=== PATIENT | female | born 1980 | race Caucasian/White ===

== ENCOUNTER → 2017-01-01 | Outpatient (CLI) | payer BC ==
--- NOTE | 2017-01-02 12:03 | MM ---
Reason for exam: screening (asymptomatic). Last mammogram was performed 3 years and 4 months ago. History: Reductions of both breasts, 2006. Taking hormonal contraceptives for 11 years beginning at age 20. Physical Findings: A clinical breast exam by your physician is recommended on an annual basis and results should be correlated with mammographic findings. MG 3D Screening Mammo W/Cad Bilateral CC and MLO view(s) were taken. Prior study comparison: August 28, 2013, bilateral MG diagnostic mammo w CAD TROY. January 11, 2012, CAD bilateral diagnostic mammogram. The breast tissue is heterogeneously dense. This may lower the sensitivity of mammography. Focal asymmetry upper outer right brast 8.2cm from nipple. This finding is changed when compared with previous exams. ASSESSMENT: Incomplete: need additional imaging evaluation, BI-RAD 0 RECOMMENDATION: Special view mammogram of the right breast. If lesion persists on supplemental views, image directed ultrasound is recommended. [facility] will attempt to contact patient to return for supplemental views and ultrasound if indicated.
== END | disposition home or self-care (01) ==
LOC: RADMAMWWP 15:04
PROVIDERS: ATTEND Obstetrics & Gynecology Obstetrics
DX: Z12.31 Encounter for screening mammogram for malignant neoplasm of breast (principal)
CPT/HCPCS: 77063; G0202

== ENCOUNTER → 2017-01-09 | Outpatient (CLI) | payer BC ==
--- NOTE | 2017-01-10 07:42 | MM ---
Reason for exam: additional evaluation requested from abnormal screening. Last mammogram was performed less than 1 month ago. History: Reductions of both breasts, 2006. Taking hormonal contraceptives for 11 years beginning at age 20. Physical Findings: Nurse did not find any significant physical abnormalities on exam. MG 3D Work Up W/Cad RT Spot compression CC, spot compression MLO, and ML view(s) were taken of the right breast. Prior study comparison: January 01, 2017, bilateral MG 3d screening mammo w/cad. August 28, 2013, bilateral MG diagnostic mammo w CAD TROY. The breast tissue is heterogeneously dense. This may lower the sensitivity of mammography. There is no discrete abnormality on compression. These results were verbally communicated with the patient and result sheet given to the patient on 01/09/17. ASSESSMENT: Benign, BI-RAD 2 RECOMMENDATION: Return to routine screening mammogram schedule for both breasts.
== END | disposition home or self-care (01) ==
LOC: RADMAMWWP 14:46
PROVIDERS: ATTEND Obstetrics & Gynecology Obstetrics
DX: R92.8 Other abnormal and inconclusive findings on diagnostic imaging of breast (principal)
CPT/HCPCS: G0206; G0279

== ENCOUNTER 2017-05-17 01:01 | Emergency (ER) | payer BC ==
[2017-05-17] MEDS ORDERED: SODIUM CHLORIDE 0.9% 1,000 ML IV STA (01:19)
[2017-05-17] MEDS ORDERED: HYDROmorphone 0.5 MG/0.5 ML SYRINGE IVP STA (01:19)
[2017-05-17] MEDS ORDERED: ONDANSETRON 4 MG/2 ML VIAL IVP STA (01:19)
--- NOTE | 2017-05-17 01:24 | ED ---
Abdominal Pain HPI - General Chief Complaint: Abdominal Pain Stated Complaint: abdominal pain Time Seen by Provider: 05/17/17 01:13 Source: patient, family Mode of arrival: ambulatory Limitations: no limitations - History of Present Illness Initial Comments: 36-year-old female patient presented to the emergency department today for evaluation of the mid-epigastric abdominal pain. Patient states that symptoms started midafternoon on Sunday. She states that the pain is waxing and waning. She states it occasionally radiates into her back. States it worsens after eating meals. She states that the pain is like a squeezing cramping pain. She states when the pain is at its worse she does become nauseated. She denies any radiation of the pain into her shoulders. She denies any vomiting, constipation, or diarrhea with this. She denies any fevers or chills with this. She states that she does have a history of Crohn's disease and has had a bowel resection in the past. States she has had 2 hernia repairs as well. Patient denies any recent rash, shortness breath, chest pain, sweats, abdominal pain, numbness, tingling, dizziness, weakness, hematuria, dysuria, urinary urgency, urinary frequency, headache, visual changes, or any other complaints. - Related Data Home Medications Medication Instructions Recorded Confirmed ALPRAZolam [Xanax] 0.25 mg PO BID PRN 05/26/14 05/17/17 Fluticasone Propionate [Flonase] 2 spray EA NOSTRIL DAILY 05/26/14 05/17/17 Loratadine [Claritin] 10 mg PO DAILY 05/26/14 05/17/17 inFLIXimab [Remicade] 0 mg IVPB 05/17/17 Previous Rx's Medication Instructions Recorded traMADol HCl [Ultram] 100 mg PO Q6HR PRN #60 tab 05/28/14 Promethazine [Phenergan] 25 mg PO Q6HR PRN #12 tablet 05/30/14 Allergies Allergy/AdvReac Type Severity Reaction Status Date / Time hydrocodone bitartrate Allergy itching of Verified 05/17/17 01:07 [From Vicodin] throat metronidazole [From Flagyl] Allergy Rash/Hives Verified 05/17/17 01:08 prochlorperazine maleate Allergy Anaphylaxis Verified 02/01/18 01:07 [From Compazine] Sulfa (Sulfonamide Allergy Itching Verified 05/17/17 01:07 Antibiotics) throat Tetracyclines Allergy itching of Verified 05/17/17 01:07 throat aspirin AdvReac due to Verified 05/17/17 01:07 nasal polyps NSAIDS (Non-Steroidal AdvReac due to Verified 05/17/17 01:07 Anti-Inflamma nasal polyps Review of Systems ROS Statement: Those systems with pertinent positive or pertinent negative responses have been documented in the HPI. ROS Other: All systems not noted in ROS Statement are negative. Past Medical History Additional Past Medical History / Comment(s): chronz dx. History of Any Multi-Drug Resistant Organisms: None Reported Past Surgical History: Adenoidectomy, Hernia Repair, Tonsillectomy Additional Past Surgical History / Comment(s): nose surgery, wisdom teeth (all four), breast reduction, D&C, Umbilical hernia, sinus surgery (2012), bowel resection (september 2013), Nose fx surgery ( 05-28-14) Past Psychological History: Anxiety Smoking Status: Never smoker Past Alcohol Use History: Occasional Past Drug Use History: None Reported General Exam Limitations: no limitations General appearance: alert, in no apparent distress, other (Physical well- developed, well-nourished adult female patient in no acute distress. Vital signs upon presentation were temperature 97.7F, pulse 72, respirations 20, blood pressure 173/90, pulse ox 100% on room air.) Eye exam: Present: normal appearance, PERRL, EOMI. Absent: scleral icterus, conjunctival injection, periorbital swelling ENT exam: Present: normal exam, normal oropharynx, mucous membranes moist Respiratory exam: Present: normal lung sounds bilaterally. Absent: respiratory distress, wheezes, rales, rhonchi, stridor Cardiovascular Exam: Present: regular rate, normal rhythm, normal heart sounds. Absent: systolic murmur, diastolic murmur, rubs, gallop, clicks GI/Abdominal exam: Present: soft, tenderness (Mid epigastric tenderness), normal bowel sounds. Absent: distended, guarding, rebound, rigid Back exam: Present: normal inspection. Absent: CVA tenderness (R), CVA tenderness (L) Neurological exam: Present: alert, oriented X3, CN II-XII intact Psychiatric exam: Present: normal affect, normal mood Skin exam: Present: warm, dry, intact, normal color. Absent: rash Course Vital Signs 05/17/17 05/17/17 01:04 02:50 Temperature 97.7 F 97.8 F Pulse Rate 72 70 Respiratory 20 17 Rate Blood Pressure 173/90 126/68 O2 Sat by Pulse 100 100 Oximetry Medical Decision Making - Medical Decision Making 36-year-old male patient presented to the emergency department today for complaints of midepigastric abdominal pain. Physical examination did reveal mid epigastric tenderness. Labs reviewed and were unremarkable. Urinalysis was negative. KUB x-ray of the abdomen showed overall nonobstructive bowel gas pattern. CT the abdomen and pelvis was obtained per patient's request and showed colonic stool burden. I did discuss results with the patient. She did continue to have abdominal pain however our options for pain medication were limited by her ALLERGIES. I did discuss that her pain could be related to constipation and we did give her some magnesium citrate to try at home. She is educated regarding a fibrous diet and increasing her fluid intake. She will be given a prescription for an ultrasound to be obtained outpatient with results going to her primary care physician. I did discuss return parameters with her. She is instructed to follow-up with her primary care physician as well as her GI specialist as soon as possible. She is instructed to return here immediately for any new, worsening, or concerning symptoms. She verbalizes understanding and agrees with this plan. - Lab Data Result diagrams: 05/17/17 02:17 05/17/17 02:17 Lab Results 05/17/17 05/17/17 05/17/17 Range/Units 01:25 01:25 02:17 WBC (3.8-10.6) k/uL RBC (3.80-5.40) m/uL Hgb (11.4-16.0) gm/dL Hct (34.0-46.0) % MCV (80.0-100.0) fL MCH (25.0-35.0) pg MCHC (31.0-37.0) g/dL RDW (11.5-15.5) % Plt Count (150-450) k/uL Neutrophils % (Manual) % Lymphocytes % (Manual) % Monocytes % (Manual) % Eosinophils % (Manual) % Neutrophils # (Manual) (1.3-7.7) k/uL Lymphocytes # (Manual) (1.0-4.8) k/uL Monocytes # (Manual) (0-1.0) k/uL Eosinophils # (Manual) (0-0.7) k/uL Nucleated RBCs (0-0) /100 WBC Manual Slide Review Large Platelets Sodium 141 (137-145) mmol/L Potassium 4.0 (3.5-5.1) mmol/L Chloride 104 (98-107) mmol/L Carbon Dioxide 25 (22-30) mmol/L Anion Gap 12 mmol/L BUN 9 (7-17) mg/dL Creatinine 0.70 (0.52-1.04) mg/dL Est GFR (MDRD) Af Amer >60 (>60 ml/min/1.73 sqM) Est GFR (MDRD) Non-Af >60 (>60 ml/min/1.73 sqM) Glucose 95 (74-99) mg/dL Calcium 9.6 (8.4-10.2) mg/dL Total Bilirubin 0.5 (0.2-1.3) mg/dL AST 19 (14-36) U/L ALT 22 (9-52) U/L Alkaline Phosphatase 57 (38-126) U/L Total Protein 7.9 (6.3-8.2) g/dL Albumin 4.6 (3.5-5.0) g/dL Amylase 176 H (30-110) U/L Lipase 72 (23-300) U/L Urine Color Colorless Urine Appearance Turbid H (Clear) Urine pH 6.0 (5.0-8.0) Ur Specific [place] 1.002 (1.001-1.035) Urine Protein Negative (Negative) Urine Glucose (UA) Negative (Negative) Urine Ketones Negative (Negative) Urine Blood Negative (Negative) Urine Nitrite Negative (Negative) Urine Bilirubin Negative (Negative) Urine Urobilinogen <2.0 (<2.0) mg/dL Ur Leukocyte Esterase Negative (Negative) Urine WBC 1 (0-5) /hpf Urine HCG, Qual Not Detected (Not Detectd) 05/17/17 Range/Units 02:17 WBC 8.1 (3.8-10.6) k/uL RBC 4.21 (3.80-5.40) m/uL Hgb 13.1 (11.4-16.0) gm/dL Hct 38.0 (34.0-46.0) % MCV 90.2 (80.0-100.0) fL MCH 31.1 (25.0-35.0) pg MCHC 34.4 (31.0-37.0) g/dL RDW 12.3 (11.5-15.5) % Plt Count 196 (150-450) k/uL Neutrophils % (Manual) 53 % Lymphocytes % (Manual) 35 % Monocytes % (Manual) 11 % Eosinophils % (Manual) 1 % Neutrophils # (Manual) 4.29 (1.3-7.7) k/uL Lymphocytes # (Manual) 2.84 (1.0-4.8) k/uL Monocytes # (Manual) 0.89 (0-1.0) k/uL Eosinophils # (Manual) 0.08 (0-0.7) k/uL Nucleated RBCs 0 (0-0) /100 WBC Manual Slide Review Performed Large Platelets Present Sodium (137-145) mmol/L Potassium (3.5-5.1) mmol/L Chloride (98-107) mmol/L Carbon Dioxide (22-30) mmol/L Anion Gap mmol/L BUN (7-17) mg/dL Creatinine (0.52-1.04) mg/dL Est GFR (MDRD) Af Amer (>60 ml/min/1.73 sqM) Est GFR (MDRD) Non-Af (>60 ml/min/1.73 sqM) Glucose (74-99) mg/dL Calcium (8.4-10.2) mg/dL Total Bilirubin (0.2-1.3) mg/dL AST (14-36) U/L ALT (9-52) U/L Alkaline Phosphatase (38-126) U/L Total Protein (6.3-8.2) g/dL Albumin (3.5-5.0) g/dL Amylase (30-110) U/L Lipase (23-300) U/L Urine Color Urine Appearance (Clear) Urine pH (5.0-8.0) Ur Specific [place] (1.001-1.035) Urine Protein (Negative) Urine Glucose (UA) (Negative) Urine Ketones (Negative) Urine Blood (Negative) Urine Nitrite (Negative) Urine Bilirubin (Negative) Urine Urobilinogen (<2.0) mg/dL Ur Leukocyte Esterase (Negative) Urine WBC (0-5) /hpf Urine HCG, Qual (Not Detectd) - EKG Data -: EKG Interpreted by Me EKG Comments: EKG obtained at 0408 shows normal sinus rhythm with a ventricular rate of 63, MD interval 186, QRS duration 80, QT 394, QTC 403. No evidence of ST elevation or depression. - Radiology Data Radiology results: report reviewed, image reviewed Two-view x-ray of the abdomen shows no sign of intestinal obstruction or pneumoperitoneum. Fecal pattern is normal. Lung bases are clear. There are no pathologic calcifications over the kidneys. There is mild lumbar levoscoliosis. Impression by Dr. Stone shows nonacute abdomen. No change. CT of the abdomen and pelvis was obtained, report was reviewed in its entirety. Impression by Dr. Gross shows postoperative changes involving the ascending colon. Large amount of retained stool throughout the colon. Consider constipation. IUD within the endometrial canal. Disposition Clinical Impression: Abdominal pain Disposition: HOME SELF-CARE Condition: Good Instructions: Constipation (ED), High Fiber Diet (ED), Abdominal Pain (ED) Additional Instructions: Increase fluids, especially water. Use Magnesium Citrate as directed. Have ultrasound performed outpatient, results will be sent to your primary care doctor. Return here immediately for any new, worsening, or concerning symptoms. Referrals: Gabo Joe DO [Primary Care Provider] - 1-2 days Time of Disposition: 04:30
[2017-05-17 01:57] LABS: Appearance,Urine Turbid (Clear); Bilirubin,Urine Negative (Negative); Blood,Urine Negative (Negative); Color,Urine Colorless; Glucose,Urine (UA) Negative (Negative); Ketones,Urine Negative (Negative); Leukocyte Esterase,Urine Negative (Negative); Nitrite,Urine Negative (Negative); Protein,Urine Negative (Negative); Specific Gravity,Urine 1.002 (1.001-1.035); Urobilinogen,Urine <2.0 mg/dL (<2.0); WBC,Urine 1 /hpf (0-5)
[2017-05-17] MEDS ORDERED: HYDROmorphone 2 MG/ML 1 ML SYRINGE IVP STA (02:07)
[2017-05-17 02:27] LABS: HGB 13.1 gm/dL (11.4-16.0); MCH 31.1 pg (25.0-35.0); MCHC 34.4 g/dL (31.0-37.0); MCV 90.2 fL (80.0-100.0); Mean Platelet Volume 7.7; Platelet Count 196 k/uL (150-450); RBC 4.21 m/uL (3.80-5.40); RDW 12.3 % (11.5-15.5); WBC 8.1 k/uL (3.8-10.6)
[2017-05-17 02:35] LABS: ALT 22 U/L (9-52); AST 19 U/L (14-36); Albumin 4.6 g/dL (3.5-5.0); Alkaline Phosphatase 57 U/L (38-126); Amylase 176 U/L (30-110); Anion Gap 12 mmol/L; Blood Urea Nitrogen 9 mg/dL (7-17); Calcium 9.6 mg/dL (8.4-10.2); Carbon Dioxide 25 mmol/L (22-30); Chloride 104 mmol/L (98-107); Glucose 95 mg/dL (74-99); Lipase 72 U/L (23-300); Sodium 141 mmol/L (137-145); Total Bilirubin 0.5 mg/dL (0.2-1.3); Total Protein 7.9 g/dL (6.3-8.2)
--- NOTE | 2017-05-17 02:42 | XR ---
EXAMINATION TYPE: XR KUB DATE OF EXAM: 05/17/2017 COMPARISON: 04/26/2013 HISTORY: Abdominal pain TECHNIQUE: 2 views FINDINGS: There is no sign of intestinal obstruction or pneumoperitoneum. Fecal pattern is normal. Denae ng bases are clear. There are no pathologic calcifications over the kidneys. There is lumbar mild lev oscoliosis. IMPRESSION: Nonacute abdomen. No change.
[2017-05-17 02:51] VITALS: RESP 17
[2017-05-17] MEDS ORDERED: RX INFO: IV CONTRAST WAS GIVEN 1 EACH MISC MISCELLANE PRN (03:09)
[2017-05-17 03:36] LABS: Eosinophils # (M) 0.08 k/uL (0-0.7); Large Platelets Present; Lymphocytes # (M) 2.84 k/uL (1.0-4.8); Monocytes # (M) 0.89 k/uL (0-1.0); Neutrophils # (M) 4.29 k/uL (1.3-7.7); Neutrophils % (M) 53 %; Nucleated Red Blood Cells 0 /100 WBC (0-0); Total Cells Counted 100
--- NOTE | 2017-05-17 03:53 | CT ---
EXAM: CT Abdomen and Pelvis With Intravenous Contrast CLINICAL HISTORY: Reason: Pain TECHNIQUE: Axial computed tomography images of the abdomen and pelvis with intravenous contrast. CTDI is 14 mGy and DLP is 43.2 mGy-cm. This CT exam was performed using one or more of the following dose reduction techniques: automated exposure control, adjustment of the mA and/or kV according to patient size, and/or use of iterative reconstruction technique. COMPARISON: 07/01/13. FINDINGS: Lower thorax: No acute findings. ABDOMEN: Liver: Unremarkable. No mass. Gallbladder and bile ducts: Unremarkable. No calcified stones. No ductal dilation. Pancreas: Unremarkable. No mass. No ductal dilation. Spleen: Unremarkable. No splenomegaly. Adrenals: Unremarkable. No mass. Kidneys and ureters: Unremarkable. No solid mass. No hydronephrosis. Stomach and bowel: There are postoperative changes in the region of the ascending colon. Large amount of retained stool throughout the colon. No mucosal thickening. Appendix: No findings to suggest acute appendicitis. PELVIS: Bladder: The urinary bladder is distended. Reproductive: The IUD is within the endometrial canal. ABDOMEN and PELVIS: Intraperitoneal space: Small amount free fluid in the pelvic cul-de- sac is likely physiologic. No free air. Bones/joints: No acute fracture. No dislocation. Soft tissues: Unremarkable. Vasculature: Unremarkable. No abdominal aortic aneurysm. Lymph nodes: Unremarkable. No enlarged lymph nodes. IMPRESSION: Postoperative changes involving the ascending colon. Large amount of retained stool throughout the colon. Consider constipation. IUD within the endometrial canal.
[2017-05-17] MEDS ORDERED: MAGNESIUM CITRATE 296 ML BOTTLE PO ONE (04:30)
[2017-05-17 04:32] VITALS: BP 146/86; PULSE 65; TEMP 96.7
== END 2017-05-17 04:35 | disposition home or self-care (01) ==
LOC: EC 01:01
DX: R10.13 Epigastric pain (principal); R19.5 Other fecal abnormalities; M41.86 Other forms of scoliosis, lumbar region; M54.9 Dorsalgia, unspecified; R11.0 Nausea; K50.90 Crohn's disease, unspecified, without complications; Z79.51 Long term (current) use of inhaled steroids; Z79.899 Other long term (current) drug therapy; Z88.1 Allergy status to other antibiotic agents; Z88.2 Allergy status to sulfonamides; Z88.5 Allergy status to narcotic agent; Z88.6 Allergy status to analgesic agent; Z88.8 Allergy status to other drugs, medicaments and biological substances; Z97.5 Presence of (intrauterine) contraceptive device; Z90.49 Acquired absence of other specified parts of digestive tract; Z53.8 Procedure and treatment not carried out for other reasons
CPT/HCPCS: 36415; 93005; 80053; 82150; 83690; 85025; 81001; 81025; 74018; 74177; 99284; 96374; 96375; 96361; J1170; J2405; Q9967

== ENCOUNTER → 2018-01-04 | Outpatient (CLI) | payer OTHER ==
--- NOTE | 2018-01-04 15:02 | XR ---
EXAMINATION TYPE: XR wrist complete RT DATE OF EXAM: 01/04/2018 CLINICAL HISTORY: pain TECHNIQUE: Frontal, lateral and oblique images of the right wrist are obtained. COMPARISON: None. FINDINGS: There is no acute fracture/dislocation evident. The joint spaces appear within normal limits. The o verlying soft tissue appears unremarkable. IMPRESSION: There is no acute fracture or dislocation seen. ICD 10 NO FRACTURE, INITIAL EVALUATION
== END | disposition home or self-care (01) ==
LOC: RADXRMAIN 14:49
PROVIDERS: ATTEND Emergency Medicine
DX: S63.501A Unspecified sprain of right wrist, initial encounter (principal)

== ENCOUNTER 2019-09-21 13:44 | Emergency (ER) | payer BC, OTHER ==
[2019-09-21 13:51] VITALS: RESP 18
--- NOTE | 2019-09-21 14:33 | ED ---
General Adult HPI - General Chief complaint: Extremity Injury, Lower Stated complaint: Poss blood clot Time Seen by Provider: 09/21/19 13:52 Source: patient, RN notes reviewed Mode of arrival: ambulatory Limitations: no limitations - History of Present Illness Initial comments: 38-year-old female with a past medical history of Crohn's disease presents to the emergency department for a chief complaint of right calf burning. Patient states she has had a burning sensation in her right calf for the past few weeks. Patient states it hurts to walk on. She has no difficulty moving her foot. Patient states she was riding her [place] today and the pain worsened and she called her nursing friend who told her she could've a blood clot. Therefore patient came to the emergency department for evaluation. Patient denies chest pain or shortness of breath. Patient does not have a history of blood clots. Is not on blood thinners.Patient has no other complaints at this time including shortness of breath, chest pain, abdominal pain, nausea or vomiting, headache, or visual changes. - Related Data Home Medications Medication Instructions Recorded Confirmed ALPRAZolam [Xanax] 0.25 mg PO BID PRN 05/26/14 05/17/17 Fluticasone Propionate [Flonase] 2 spray EA NOSTRIL DAILY 05/26/14 05/17/17 Loratadine [Claritin] 10 mg PO DAILY 05/26/14 05/17/17 inFLIXimab [Remicade] 0 mg IVPB 05/17/17 Previous Rx's Medication Instructions Recorded traMADol HCl [Ultram] 100 mg PO Q6HR PRN #60 tab 05/28/14 Promethazine [Phenergan] 25 mg PO Q6HR PRN #12 tablet 05/30/14 Allergies Allergy/AdvReac Type Severity Reaction Status Date / Time hydrocodone bitartrate Allergy itching of Verified 09/21/19 13:50 [From Vicodin] throat metronidazole [From Flagyl] Allergy Rash/Hives Verified 09/21/19 13:50 prochlorperazine maleate Allergy Anaphylaxis Verified 09/21/19 13:50 [From Compazine] Sulfa (Sulfonamide Allergy Itching Verified 09/21/19 13:50 Antibiotics) throat Tetracyclines Allergy itching of Verified 09/21/19 13:50 throat aspirin AdvReac due to Verified 09/21/19 13:50 nasal polyps NSAIDS (Non-Steroidal AdvReac due to Verified 09/21/19 13:50 Anti-Inflamma nasal polyps Review of Systems ROS Statement: Those systems with pertinent positive or pertinent negative responses have been documented in the HPI. ROS Other: All systems not noted in ROS Statement are negative. Past Medical History Additional Past Medical History / Comment(s): chrons dx. History of Any Multi-Drug Resistant Organisms: None Reported Past Surgical History: Adenoidectomy, Hernia Repair, Tonsillectomy Additional Past Surgical History / Comment(s): nose surgery, wisdom teeth (all four), breast reduction, D&C, Umbilical hernia, sinus surgery (2012), bowel resection (september 2013), Nose fx surgery ( 05-28-14), Past Psychological History: Anxiety Smoking Status: Never smoker Past Alcohol Use History: Occasional Past Drug Use History: None Reported General Exam Limitations: no limitations General appearance: alert, in no apparent distress Head exam: Present: atraumatic, normocephalic, normal inspection Eye exam: Present: normal appearance, PERRL, EOMI. Absent: scleral icterus, conjunctival injection, periorbital swelling ENT exam: Present: normal exam, mucous membranes moist Neck exam: Present: normal inspection, full ROM. Absent: tenderness, meningism us, lymphadenopathy Respiratory exam: Present: normal lung sounds bilaterally. Absent: respiratory distress, wheezes, rales, rhonchi, stridor Cardiovascular Exam: Present: regular rate, normal rhythm, normal heart sounds. Absent: systolic murmur, diastolic murmur, rubs, gallop, clicks Extremities exam: Present: full ROM (Full range of motion of the right knee as well as right ankle.), normal capillary refill (Capillary refill less than 2 seconds, pedal pulse 2+ in the right lower extremity.), calf tenderness (Minimal tenderness of the right calf). Absent: tenderness, pedal edema, joint swelling, other (There is no erythema edema or increased warmth of the right calf.) Course Vital Signs 09/21/19 13:48 Temperature 97.9 F Pulse Rate 74 Respiratory 18 Rate Blood Pressure 176/92 O2 Sat by Pulse 100 Oximetry Medical Decision Making - Medical Decision Making HPI physical exam as documented. No edema erythema or increased circumference of the right calf. Negative Homans sign. Neurovascular status intact right lower extremity. Right lower extremity ultrasound is negative for DVT. Patient may have muscle strain or other causes of calf pain. However I do not see an emergent cause of pain. She will follow up with her primary care provider. She'll return for any other worsening symptoms. Disposition Clinical Impression: Right calf pain Disposition: HOME SELF-CARE Condition: Good Instructions (If sedation given, give patient instructions): Leg Pain (ED) Additional Instructions: Please follow up with primary care in 1-2 days. Please return here to the emergency room for any worsening symptoms. Is patient prescribed a controlled substance at d/c from ED?: No Referrals: Gabo Joe DO [Primary Care Provider] - 1-2 days Time of Disposition: 15:12
--- NOTE | 2019-09-21 15:01 | US ---
EXAMINATION TYPE: US venous doppler duplex LE RT DATE OF EXAM: 09/21/2019 2:53 PM COMPARISON: NONE CLINICAL HISTORY: r/o blood clot. Right calf pain SIDE PERFORMED: Right TECHNIQUE: The lower extremity deep venous system is examined utilizing real time linear array sonog broderick with graded compression, doppler sonography and color-flow sonography. VESSELS IMAGED: External Iliac Vein (EIV) Common Femoral Vein Deep Femoral Vein Greater Saphenous Vein * Femoral Vein Popliteal Vein Small Saphenous Vein * Proximal Calf Veins (* superficial vessels) Compression not done at EIV, GSV, CFV, and prox fem vein due to patient too ticklish. Right Leg: Visualized portions appear negative for DVT IMPRESSION: 1. Right lower extremity ultrasound negative for deep venous thrombosis.
[2019-09-21 15:26] VITALS: BP 138/78; PULSE 78; TEMP 98
== END 2019-09-21 15:25 | disposition home or self-care (01) ==
LOC: EC 13:44
DX: M79.661 Pain in right lower leg (principal); Z88.5 Allergy status to narcotic agent; Z88.1 Allergy status to other antibiotic agents; Z88.2 Allergy status to sulfonamides; Z88.6 Allergy status to analgesic agent; Z88.8 Allergy status to other drugs, medicaments and biological substances
CPT/HCPCS: 99283

== ENCOUNTER → 2020-02-02 | Outpatient (CLI) | payer BC ==
--- NOTE | 2020-02-03 13:38 | MM ---
Reason for exam: screening (asymptomatic). Last mammogram was performed 3 years and 1 month ago. History: Reductions of both breasts, 2006. Took hormonal contraceptives for 11 years beginning at age 20. Physical Findings: A clinical breast exam by your physician is recommended on an annual basis and results should be correlated with mammographic findings. MG 3D Screening Mammo W/Cad Bilateral CC and MLO view(s) were taken. XCCL view(s) were taken of the left breast. Prior study comparison: January 09, 2017, right breast MG 3d work up w/cad RT. January 01, 2017, bilateral MG 3d screening mammo w/cad. The breast tissue is heterogeneously dense. This may lower the sensitivity of mammography. There are benign appearing round, grouped calcifications in the left breast. Asymmetric breast tissue left axilla, stable. There is no discrete abnormality. ASSESSMENT: Benign, BI-RAD 2 RECOMMENDATION: Routine screening mammogram of both breasts in 1 year.
== END | disposition home or self-care (01) ==
LOC: RADMAMWWP 10:32
PROVIDERS: ATTEND Obstetrics & Gynecology Obstetrics
DX: Z12.31 Encounter for screening mammogram for malignant neoplasm of breast (principal)
CPT/HCPCS: 77063; 77067

== ENCOUNTER 2020-06-10 15:36 | Emergency (ER) | payer BC ==
[2020-06-10 15:45] VITALS: TEMP 98.5
[2020-06-10] MEDS ORDERED: SODIUM CHLORIDE 0.9% 1,000 ML IV ONE (15:49)
[2020-06-10] MEDS ORDERED: FAMOTIDINE 20 MG/2 ML VIAL IV STA (15:49)
[2020-06-10] MEDS ORDERED: methylPREDNISolone SOD SUCCI 125 MG/2 ML VIAL IV STA (15:49)
[2020-06-10] MEDS ORDERED: diphenhydrAMINE 50 MG/ML 1 ML VIAL IVP STA (15:49)
--- NOTE | 2020-06-10 16:56 | ED ---
Allergic Reaction HPI - General Chief complaint: Allergic Reaction Stated complaint: Allergic Reaction Time Seen by Provider: 06/10/20 15:40 Source: patient Mode of arrival: EMS Limitations: no limitations - History of Present Illness Initial Comments: Patient is a 39-year-old female with past medical history of colitis who presents to the emergency room with reported ALLERGIC reaction. She was at [facility] receiving her second Moderna vaccine when she had ALLERGIC reaction. Reports that she broke out in hives and had shortness of breath. They did administer an EpiPen and the patient self-administered 25 mg of Benadryl. EMS was called. When EMS arrived to the scene they did not appreciate any hives. Patient was not in any respiratory distress. Vital signs were normal. No hypotension, nausea or vomiting. Has multiple drug ALLERGIES. Denies ever having covid symptoms or diagnosed covid infection. Denies any chest pain. No abdominal pain or cramping. No concern for . Refused IV start by EMS. No other alleviating, precipitating or modifying factors - Related Data Home Medications Medication Instructions Recorded Confirmed ALPRAZolam [Xanax] 0.25 mg PO BID PRN 05/26/14 05/17/17 Fluticasone Propionate [Flonase] 2 spray EA NOSTRIL DAILY 05/26/14 05/17/17 Loratadine [Claritin] 10 mg PO DAILY 05/26/14 05/17/17 inFLIXimab [Remicade] 0 mg IVPB 05/17/17 Previous Rx's Medication Instructions Recorded traMADol HCl [Ultram] 100 mg PO Q6HR PRN #60 tab 05/28/14 Promethazine [Phenergan] 25 mg PO Q6HR PRN #12 tablet 05/30/14 EPINEPHrine (Auto Inject) [Epipen] 0.3 mg IM ONCE PRN #2 pen 06/10/20 Famotidine [Pepcid] 20 mg PO BID #10 tablet 06/10/20 methylPREDNISolone [Medrol Dose 4 mg PO DIRECTED #1 pack 06/10/20 Pack] Allergies Allergy/AdvReac Type Severity Reaction Status Date / Time hydrocodone bitartrate Allergy itching of Verified 06/15/20 00:49 [From Vicodin] throat metronidazole [From Flagyl] Allergy Rash/Hives Verified 06/15/20 00:49 prochlorperazine maleate Allergy Anaphylaxis Verified 06/15/20 00:49 [From Compazine] Sulfa (Sulfonamide Allergy Itching Verified 06/15/20 00:49 Antibiotics) throat Tetracyclines Allergy itching of Verified 06/15/20 00:49 throat aspirin AdvReac due to Verified 06/15/20 00:49 nasal polyps NSAIDS (Non-Steroidal AdvReac due to Verified 06/15/20 00:49 Anti-Inflamma nasal polyps Review of Systems ROS Statement: Those systems with pertinent positive or pertinent negative responses have been documented in the HPI. ROS Other: All systems not noted in ROS Statement are negative. Past Medical History Additional Past Medical History / Comment(s): chrons dx. History of Any Multi-Drug Resistant Organisms: None Reported Past Surgical History: Adenoidectomy, Hernia Repair, Tonsillectomy Additional Past Surgical History / Comment(s): nose surgery, wisdom teeth (all four), breast reduction, D&C, Umbilical hernia, sinus surgery (2012), bowel resection (september 2013), Nose fx surgery ( 05-28-14), Past Psychological History: Anxiety Smoking Status: Never smoker Past Alcohol Use History: Occasional Past Drug Use History: None Reported General Exam Limitations: no limitations General appearance: alert, anxious Head exam: Present: atraumatic, normocephalic, normal inspection Eye exam: Present: normal appearance, PERRL, EOMI. Absent: scleral icterus, conjunctival injection, periorbital swelling ENT exam: Present: normal exam, mucous membranes moist, other (No oral swelling. No tongue swelling. Floor of mouth is soft. No stridor or drooling. ) Neck exam: Present: normal inspection. Absent: tenderness, meningismus, lymphadenopathy Respiratory exam: Present: normal lung sounds bilaterally. Absent: respiratory distress, wheezes, rales, rhonchi, stridor Cardiovascular Exam: Present: regular rate, normal rhythm, normal heart sounds. Absent: systolic murmur, diastolic murmur, rubs, gallop, clicks GI/Abdominal exam: Present: soft, normal bowel sounds. Absent: distended, tenderness, guarding, rebound, rigid Extremities exam: Present: normal inspection, full ROM, normal capillary refill. Absent: tenderness, pedal edema, joint swelling, calf tenderness Back exam: Present: normal inspection Neurological exam: Present: alert, oriented X3, CN II-XII intact Psychiatric exam: Present: normal affect, normal mood Skin exam: Present: warm, dry, intact, normal color. Absent: rash Course Vital Signs 06/10/20 06/10/20 06/10/20 15:39 16:44 17:03 Temperature 98.5 F Pulse Rate 94 88 Respiratory 20 18 Rate Blood Pressure 158/109 158/102 O2 Sat by Pulse 100 100 100 Oximetry Medical Decision Making - Medical Decision Making Upon arrival patient was placed into room 2. Prompt reevaluation is performed. Patient does not have any signs of hives. No drooling, stridor or wheezing. Vital signs within normal limits. IV is established. Patient was given 25 mg of Benadryl IV, 20 mg of Pepcid and 125 mg of Solu-Medrol. Patient is observed in the emergency department for an hour and a half. She has no return of her shortness of breath or hives. Patient was placed on a Medrol Dosepak, Pepcid and [place] for the next 5 days. Patient is also given a prescription for an EpiPen. Follow up with her primary care doctor in 2-4 days. Return to the emergency room for any new or worsening symptoms. Patient was discharged home in stable condition Disposition Clinical Impression: Allergic reaction Disposition: HOME SELF-CARE Condition: Stable Instructions (If sedation given, give patient instructions): General Allergic Reaction (ED) Additional Instructions: Start taking your prescription medications tomorrow. Use the Epipen as needed for allergic reactions. Follow up with your PCP in 2-4 days. Return to the ED for any new or worsening symptoms. Prescriptions: EPINEPHrine (Auto Inject) [Epipen] 0.3 mg IM ONCE PRN #2 pen PRN Reason: Anaphylaxis methylPREDNISolone [Medrol Dose Pack] 4 mg PO DIRECTED #1 pack Famotidine [Pepcid] 20 mg PO BID #10 tablet Is patient prescribed a controlled substance at d/c from ED?: No Referrals: Gabo Joe DO [Primary Care Provider] - 1-2 days Time of Disposition: 16:56
[2020-06-10 17:06] VITALS: BP 158/102; PULSE 88; RESP 18
== END 2020-06-10 17:06 | disposition home or self-care (01) ==
LOC: EC 15:36
DX: T78.40XA Allergy, unspecified, initial encounter (principal); F41.9 Anxiety disorder, unspecified; Z79.899 Other long term (current) drug therapy; Z79.51 Long term (current) use of inhaled steroids; Z88.5 Allergy status to narcotic agent; Z88.2 Allergy status to sulfonamides; Z88.6 Allergy status to analgesic agent; Z88.8 Allergy status to other drugs, medicaments and biological substances; Z88.1 Allergy status to other antibiotic agents
CPT/HCPCS: 99283; 96374; 96375 ×2; 96361; J1200; J2930

== ENCOUNTER 2020-06-15 00:44 | Emergency (ER) | payer BC ==
[2020-06-15 00:50] VITALS: PULSE 65; TEMP 98.1
[2020-06-15] MEDS ORDERED: SODIUM CHLORIDE 0.9% 1,000 ML IV STA (00:59)
--- NOTE | 2020-06-15 01:08 | ED ---
General Adult HPI - General Chief complaint: Arrhythmia/Palpitations Stated complaint: Palpitations Time Seen by Provider: 06/15/20 00:50 Source: patient, family Mode of arrival: ambulatory Limitations: no limitations - History of Present Illness Initial comments: 39-year-old female patient presents to the emergency department today for evaluation of palpitations and chest pain. Patient states that she has been having symptoms since receiving her second Moderna COVID-19 vaccine on . States that pain has been intermittent. Tonight it woke her from sleep. Reports left sided chest pain. No shortness of breath. She is having some nausea, no vo miting. Denies sweats. States it feels like her heart is racing. She states she took benadryl thinking maybe she is having anxiety. She did have an allergic reaction after receiving the injection and was brought to the emergency department for evaluation and treatment on . She does have a history of crohns, currently in remission on remicade. Denies any fever or chills. Denies cough or congestion. Reports that she has been noticing higher blood pressures over the last month, the BP issues started before receiving the covid vaccine. Patient denies any recent rash, abdominal pain, diarrhea, constipation, back pain, numbness, tingling, dizziness, weakness, hematuria, dysuria, urinary urgency, urinary frequency, headache, visual changes, or any other complaints. - Related Data Home Medications Medication Instructions Recorded Confirmed ALPRAZolam [Xanax] 0.25 mg PO BID PRN 05/26/14 05/17/17 Fluticasone Propionate [Flonase] 2 spray EA NOSTRIL DAILY 05/26/14 05/17/17 Loratadine [Claritin] 10 mg PO DAILY 05/26/14 05/17/17 inFLIXimab [Remicade] 0 mg IVPB 05/17/17 Previous Rx's Medication Instructions Recorded traMADol HCl [Ultram] 100 mg PO Q6HR PRN #60 tab 05/28/14 Promethazine [Phenergan] 25 mg PO Q6HR PRN #12 tablet 05/30/14 EPINEPHrine (Auto Inject) [Epipen] 0.3 mg IM ONCE PRN #2 pen 06/10/20 Famotidine [Pepcid] 20 mg PO BID #10 tablet 06/10/20 methylPREDNISolone [Medrol Dose 4 mg PO DIRECTED #1 pack 06/10/20 Pack] Allergies Allergy/AdvReac Type Severity Reaction Status Date / Time hydrocodone bitartrate Allergy itching of Verified 06/15/20 00:49 [From Vicodin] throat metronidazole [From Flagyl] Allergy Rash/Hives Verified 06/15/20 00:49 prochlorperazine maleate Allergy Anaphylaxis Verified 06/15/20 00:49 [From Compazine] Sulfa (Sulfonamide Allergy Itching Verified 06/15/20 00:49 Antibiotics) throat Tetracyclines Allergy itching of Verified 06/15/20 00:49 throat aspirin AdvReac due to Verified 06/15/20 00:49 nasal polyps NSAIDS (Non-Steroidal AdvReac due to Verified 06/15/20 00:49 Anti-Inflamma nasal polyps Review of Systems ROS Statement: Those systems with pertinent positive or pertinent negative responses have been documented in the HPI. ROS Other: All systems not noted in ROS Statement are negative. Past Medical History Additional Past Medical History / Comment(s): chrons dx. History of Any Multi-Drug Resistant Organisms: None Reported Past Surgical History: Adenoidectomy, Hernia Repair, Tonsillectomy Additional Past Surgical History / Comment(s): nose surgery, wisdom teeth (all four), breast reduction, D&C, Umbilical hernia, sinus surgery (2012), bowel resection (september 2013), Nose fx surgery ( 05-28-14), Past Psychological History: Anxiety Smoking Status: Never smoker Past Alcohol Use History: Occasional Past Drug Use History: None Reported General Exam Limitations: no limitations General appearance: alert, in no apparent distress, other (This is a well- developed, well-nourished adult female patient in no acute distress. Vital signs upon presentation are temperature 98.1F, pulse 65, respirations 22, blood pressure 175/98, pulse ox 100% on room air.) Eye exam: Present: normal appearance, PERRL, EOMI. Absent: scleral icterus, conjunctival injection, periorbital swelling ENT exam: Present: normal exam, normal oropharynx, mucous membranes moist Respiratory exam: Present: normal lung sounds bilaterally. Absent: respiratory distress, wheezes, rales, rhonchi, stridor Cardiovascular Exam: Present: regular rate, normal rhythm, normal heart sounds. Absent: systolic murmur, diastolic murmur, rubs, gallop, clicks GI/Abdominal exam: Present: soft, normal bowel sounds. Absent: distended, tenderness, guarding, rebound, rigid Neurological exam: Present: alert, oriented X3, CN II-XII intact Psychiatric exam: Present: normal affect, normal mood Skin exam: Present: warm, dry, intact, normal color. Absent: rash Course Vital Signs 06/15/20 00:45 Temperature 98.1 F Pulse Rate 65 Respiratory 22 Rate Blood Pressure 175/98 O2 Sat by Pulse 100 Oximetry EKG Findings - EKG Comments: EKG Findings:: EKG obtained at 00 56 shows normal sinus rhythm with a sinus arrh ythmia. Ventricular rate is 67, DE interval 164, QRS duration 92, QT 364, QTC 384. No evidence of ST elevation or depression. Medical Decision Making - Medical Decision Making 89-year-old female patient presents to the emergency department today for evaluation of chest pain and palpitations. Patient states she feels that her heart is racing. Physical examination is unremarkable. Lungs are clear to auscultation with good air movement. Heart sounds are normal. Labs reviewed and showed normal white blood cell count, negative troponin, normal electrolytes, and normal TSH. EKG showed sinus rhythm with a rate of 62, patient was symptomatic at time of EKG. Chest x-ray was unremarkable. Patient did start having symptoms on after receiving her second moderna COVID- 19 vaccine and having an allergic reaction. Patient has been on steroids since the incident. She will be discharged to follow-up with her primary care physician. She is instructed to discuss blood pressures and possible Holter monitoring. Return parameters were discussed in detail. She verbalizes understanding and agrees with this plan. Case discussed with my attending Dr. Forde. - Lab Data Result diagrams: 06/15/20 01:08 06/15/20 01:08 Lab Results 06/15/20 06/15/20 06/15/20 Range/Units 01:08 01:08 01:08 WBC 11.1 H (3.8-10.6) k/uL RBC 4.53 (3.80-5.40) m/uL Hgb 14.3 (11.4-16.0) gm/dL Hct 41.7 (34.0-46.0) % MCV 92.1 (80.0-100.0) fL MCH 31.6 (25.0-35.0) pg MCHC 34.3 (31.0-37.0) g/dL RDW 11.7 (11.5-15.5) % Plt Count 207 (150-450) k/uL MPV 7.7 PT 10.9 (9.0-12.0) sec INR 1.0 (<1.2) APTT 23.3 (22.0-30.0) sec Sodium 137 (137-145) mmol/L Potassium 3.8 (3.5-5.1) mmol/L Chloride 102 (98-107) mmol/L Carbon Dioxide 24 (22-30) mmol/L Anion Gap 11 mmol/L BUN 13 (7-17) mg/dL Creatinine 0.65 (0.52-1.04) mg/dL Est GFR (CKD-EPI)AfAm >90 (>60 ml/min/1.73 sqM) Est GFR (CKD-EPI)NonAf >90 (>60 ml/min/1.73 sqM) Glucose 97 (74-99) mg/dL Calcium 9.5 (8.4-10.2) mg/dL Magnesium 2.0 (1.6-2.3) mg/dL Total Bilirubin 0.9 (0.2-1.3) mg/dL AST 21 (14-36) U/L ALT 18 (4-34) U/L Alkaline Phosphatase 57 (38-126) U/L Troponin I (0.000-0.034) ng/mL Total Protein 8.2 (6.3-8.2) g/dL Albumin 4.7 (3.5-5.0) g/dL TSH 3.560 (0.465-4.680) mIU/L 06/15/20 Range/Units 01:08 WBC (3.8-10.6) k/uL RBC (3.80-5.40) m/uL Hgb (11.4-16.0) gm/dL Hct (34.0-46.0) % MCV (80.0-100.0) fL MCH (25.0-35.0) pg MCHC (31.0-37.0) g/dL RDW (11.5-15.5) % Plt Count (150-450) k/uL MPV PT (9.0-12.0) sec INR (<1.2) APTT (22.0-30.0) sec Sodium (137-145) mmol/L Potassium (3.5-5.1) mmol/L Chloride (98-107) mmol/L Carbon Dioxide (22-30) mmol/L Anion Gap mmol/L BUN (7-17) mg/dL Creatinine (0.52-1.04) mg/dL Est GFR (CKD-EPI)AfAm (>60 ml/min/1.73 sqM) Est GFR (CKD-EPI)NonAf (>60 ml/min/1.73 sqM) Glucose (74-99) mg/dL Calcium (8.4-10.2) mg/dL Magnesium (1.6-2.3) mg/dL Total Bilirubin (0.2-1.3) mg/dL AST (14-36) U/L ALT (4-34) U/L Alkaline Phosphatase (38-126) U/L Troponin I <0.012 (0.000-0.034) ng/mL Total Protein (6.3-8.2) g/dL Albumin (3.5-5.0) g/dL TSH (0.465-4.680) mIU/L - Radiology Data Radiology results: report reviewed, image reviewed Two-view x-ray of the chest is obtained. Report was reviewed in its entirety. Impression by Dr. Butcher shows no acute pulmonary process. Disposition Clinical Impression: Palpitations, Chest pain Disposition: HOME SELF-CARE Condition: Good Instructions (If sedation given, give patient instructions): Chest Pain (ED), Heart Palpitations (ED) Additional Instructions: Follow-up through primary care physician for recheck in 1-2 days. Keep a log of your blood pressures to take to primary care physician's office. Discuss possible Holter/cardiac monitoring to determine any abnormal heart rhythms. Return to the emergency department immediately for any new, worsening, or concerning symptoms. Is patient prescribed a controlled substance at d/c from ED?: No Referrals: Gabo Joe DO [Primary Care Provider] - 1-2 days Time of Disposition: 02:50
--- NOTE | 2020-06-15 01:25 | XR ---
EXAM: XR Chest, 2 Views CLINICAL HISTORY: ITS.REASON XR Reason: dysrhythmia TECHNIQUE: Frontal and lateral views of the chest. COMPARISON: none available FINDINGS: Lungs: No consolidations, nodules or masses. Pleural space: No pleural effusion. No pneumothorax. Heart: Unremarkable. No cardiomegaly. Mediastinum: Unremarkable. Bones/joints: Unremarkable. IMPRESSION: No acute pulmonary process.
[2020-06-15 01:45] LABS: HCT 41.7 % (34.0-46.0); HGB 14.3 gm/dL (11.4-16.0); MCH 31.6 pg (25.0-35.0); MCHC 34.3 g/dL (31.0-37.0); MCV 92.1 fL (80.0-100.0); Mean Platelet Volume 7.7; Platelet Count 207 k/uL (150-450); RBC 4.53 m/uL (3.80-5.40); RDW 11.7 % (11.5-15.5); WBC 11.1 k/uL (3.8-10.6)
[2020-06-15 01:55] LABS: ALT 18 U/L (4-34); AST 21 U/L (14-36); African American GFR (CKD) >90 (>60 ml/min/1.73 sqM); Albumin 4.7 g/dL (3.5-5.0); Alkaline Phosphatase 57 U/L (38-126); Anion Gap 11 mmol/L; Blood Urea Nitrogen 13 mg/dL (7-17); Calcium 9.5 mg/dL (8.4-10.2); Carbon Dioxide 24 mmol/L (22-30); Chloride 102 mmol/L (98-107); Glucose 97 mg/dL (74-99); Non-African American GFR(CKD) >90 (>60 ml/min/1.73 sqM); Potassium 3.8 mmol/L (3.5-5.1); Sodium 137 mmol/L (137-145); Total Bilirubin 0.9 mg/dL (0.2-1.3); Total Protein 8.2 g/dL (6.3-8.2)
[2020-06-15 02:00] LABS: Partial Thromboplastin Time 23.3 sec (22.0-30.0); Prothrombin Time 10.9 sec (9.0-12.0)
[2020-06-15 02:56] VITALS: BP 137/95; RESP 20
[2020-06-15 03:04] LABS: Eosinophils # (M) 0.11 k/uL (0-0.7); Lymphocytes # (M) 4.33 k/uL (1.0-4.8); Monocytes # (M) 0.33 k/uL (0-1.0); Neutrophils # (M) 6.33 k/uL (1.3-7.7); Neutrophils % (M) 57 %; Nucleated Red Blood Cells 0 /100 WBC (0-0); Total Cells Counted 100
== END 2020-06-15 03:02 | disposition home or self-care (01) ==
LOC: EC 00:44
DX: R07.89 Other chest pain (principal); R00.2 Palpitations; F41.9 Anxiety disorder, unspecified; K50.90 Crohn's disease, unspecified, without complications; Z90.09 Acquired absence of other part of head and neck
CPT/HCPCS: 36415; 71046; 80053; 83735; 84443; 84484; 85025; 85610; 85730; 93005; 99285

== ENCOUNTER → 2021-02-07 | Outpatient (CLI) | payer BC ==
--- NOTE | 2021-02-08 11:14 | MM ---
Reason for exam: screening (asymptomatic). Last mammogram was performed 1 year ago. History: Reductions of both breasts, 2006. Took hormonal contraceptives for 11 years beginning at age 20. Physical Findings: A clinical breast exam by your physician is recommended on an annual basis and results should be correlated with mammographic findings. MG 3D Screening Mammo W/Cad Bilateral CC and MLO view(s) were taken. Prior study comparison: February 02, 2020, bilateral MG 3d screening mammo w/cad. January 01, 2017, bilateral MG 3d screening mammo w/cad. The breast tissue is heterogeneously dense. This may lower the sensitivity of mammography. There are benign appearing round calcifications bilaterally. There is no discrete abnormality. ASSESSMENT: Benign, BI-RAD 2 RECOMMENDATION: Routine screening mammogram of both breasts in 1 year.
== END | disposition home or self-care (01) ==
LOC: RADMAMWWP 14:16
PROVIDERS: ATTEND Obstetrics & Gynecology
DX: Z12.31 Encounter for screening mammogram for malignant neoplasm of breast (principal)
CPT/HCPCS: 77063; 77067

== ENCOUNTER 2022-07-18 04:53 | Emergency (ER) | payer BC ==
[2022-07-18 05:08] VITALS: BP 150/98; PULSE 73; RESP 16; TEMP 98.1
--- NOTE | 2022-07-18 05:42 | XR ---
EXAMINATION TYPE: XR chest 2V DATE OF EXAM: 07/18/2022 COMPARISON: Chest x-ray June 15, 2020 HISTORY: Chest pain. TECHNIQUE: Frontal and lateral views of the chest are obtained. FINDINGS: There is no suspicious new focal air space opacity, pleural effusion, or pneumothorax seen . The cardiac silhouette size is stable and within normal limits. Underlying scoliosis is redemonstr ated. IMPRESSION: No acute process. No significant change from prior.
[2022-07-18 05:44] LABS: INR 1.1 (<1.2); Partial Thromboplastin Time 25.5 sec (22.0-30.0); Prothrombin Time 11.1 sec (9.0-12.0)
[2022-07-18 05:51] LABS: ALT 23 U/L (4-34); AST 24 U/L (14-36); African American GFR (CKD) >90 (>60 ml/min/1.73 sqM); Albumin 4.3 g/dL (3.5-5.0); Alkaline Phosphatase 64 U/L (38-126); Anion Gap 8 mmol/L; Blood Urea Nitrogen 11 mg/dL (7-17); Calcium 9.2 mg/dL (8.4-10.2); Carbon Dioxide 27 mmol/L (22-30); Chloride 103 mmol/L (98-107); Glucose 90 mg/dL (74-99); Magnesium 2.1 mg/dL (1.6-2.3); Non-African American GFR(CKD) >90 (>60 ml/min/1.73 sqM); Potassium 4.3 mmol/L (3.5-5.1); Sodium 138 mmol/L (137-145); Total Protein 7.7 g/dL (6.3-8.2)
[2022-07-18 06:10] LABS: HCT 39.6 % (34.0-46.0); HGB 13.7 gm/dL (11.4-16.0); MCH 31.6 pg (25.0-35.0); MCHC 34.5 g/dL (31.0-37.0); MCV 91.7 fL (80.0-100.0); Mean Platelet Volume 7.9; Platelet Count 256 k/uL (150-450); RBC 4.32 m/uL (3.80-5.40); RDW 12.4 % (11.5-15.5); WBC 7.2 k/uL (3.8-10.6)
[2022-07-18 08:56] LABS: Eosinophils # (M) 0.36 k/uL (0-0.7); Lymphocytes # (M) 2.38 k/uL (1.0-4.8); Monocytes # (M) 0.14 k/uL (0-1.0); Neutrophils # (M) 4.32 k/uL (1.3-7.7); Neutrophils % (M) 60 %; Nucleated Red Blood Cells 0 /100 WBC (0-0); Total Cells Counted 100
[2022-07-18 08:57] LABS: RBC Morphology Normal
== END 2022-07-18 06:14 | disposition left against medical advice (07) ==
LOC: EC 04:53
DX: Z53.21 Procedure and treatment not carried out due to patient leaving prior to being seen by health care provider (principal)
CPT/HCPCS: 36415; 71046; 80053; 83735; 84484; 85025; 85610; 85730; 93005; 99499

== ENCOUNTER → 2023-03-15 | Outpatient (CLI) | payer BC ==
--- NOTE | 2023-03-16 12:09 | MM ---
Reason for Exam: Screening (asymptomatic). Last screening mammogram was performed 12 month(s) ago. Patient History: Menarche at age 14. First Full-Term at age 26. Premenopausal. Hormonal Contraceptives, starting at age 20 for 11 years. 2005, Bilateral Reduction. Maternal aunt had ovarian cancer, age 60. Maternal aunt had ovarian cancer, age 60. Risk Values: Moni 5 year model risk: 0.5%. NCI Lifetime model risk: 9.0%. Prior Study Comparison: 02/02/2020 Bilateral Screening Mammogram, [facility]. 02/07/2021 Bilateral Screening Mammogram, [facility]. 02/16/2022 Bilateral MG 3D screening mammo w/cad, [facility]. Tissue Density: The breast tissue is heterogeneously dense. This may lower the sensitivity of mammography. Findings: Analyzed By CAD. There is no suspicious group of microcalcifications or new suspicious mass. Overall Assessment: Negative, BI-RAD 1 Management: Screening Mammogram of both breasts in [address] [facility] will attempt to contact patient to return for supplemental views and ultrasound if indicated. Patient should continue monthly self-breast exams. A clinical breast exam by your physician is recommended on an annual basis. This exam should not preclude additional follow-up of suspicious palpable abnormalities. Note on Moni scores and lifetime risk: 1. A Moni score greater than 3% is considered moderate risk. If this is the case, consider specialist referral to assess eligibility for a risk reducing agent. 2. If overall lifetime risk for the development of breast cancer is 20% or higher, the patient may qualify for future screening with alternating mammogram and breast MRI. Electronically signed and approved by: Jayant Santo DO
== END | disposition home or self-care (01) ==
LOC: RADMAMWWP 16:13
PROVIDERS: ATTEND Obstetrics & Gynecology
DX: Z12.31 Encounter for screening mammogram for malignant neoplasm of breast (principal)
CPT/HCPCS: 77063; 77067

== ENCOUNTER → 2024-03-18 | Outpatient (CLI) | payer BC ==
--- NOTE | 2024-03-19 10:32 | MM ---
Reason for Exam: Screening (asymptomatic). Last mammogram was performed 1 year(s) and 1 month(s) ago. Patient History: Menarche at age 14. First Full-Term at age 26. Premenopausal. Hormonal Contraceptives, starting at age 20 for 11 years. 2005, Bilateral Reduction. Maternal aunt had ovarian cancer, age 60. Maternal aunt had ovarian cancer, age 60. Last menstrual period: 02/29/2024 Risk Values: Moni 5 year model risk: 0.5%. NCI Lifetime model risk: 9.0%. Prior Study Comparison: 02/07/2021 Bilateral Screening Mammogram, [facility]. 02/16/2022 Bilateral MG 3D screening mammo w/cad, [facility]. 03/15/2023 Bilateral MG 3D screening mammo w/cad, [facility]. Tissue Density: The breasts are heterogeneously dense, which may obscure small masses. Findings: Analyzed By CAD. Right breast: There is no suspicious group of microcalcifications or new suspicious mass. Left breast: There is no suspicious group of microcalcifications or new suspicious mass. Overall Assessment: Negative, BI-RAD 1 Management: Screening Mammogram of both breasts in [address] [facility] will attempt to contact patient to return for supplemental views and ultrasound if indicated. Patient should continue monthly self-breast exams. A clinical breast exam by your physician is recommended on an annual basis. This exam should not preclude additional follow-up of suspicious palpable abnormalities. Note on Moni scores and lifetime risk: 1. A Moni score greater than 3% is considered moderate risk. If this is the case, consider specialist referral to assess eligibility for a risk reducing agent. 2. If overall lifetime risk for the development of breast cancer is 20% or higher, the patient may qualify for future screening with alternating mammogram and breast MRI. [facility], , 03/19/2024 10:28 AM. Electronically signed and approved by: Jayant Santo DO
== END | disposition home or self-care (01) ==
LOC: RADMAMWWP 15:56
PROVIDERS: ATTEND Obstetrics & Gynecology
DX: Z12.31 Encounter for screening mammogram for malignant neoplasm of breast (principal); R92.333 Mammographic heterogeneous density, bilateral breasts
CPT/HCPCS: 77063; 77067